=== PATIENT | male | born 1995 | race Caucasian/White ===

== ENCOUNTER 2017-05-05 10:53 | Emergency (ER) | payer OTHER ==
--- NOTE | 2017-05-05 11:34 | ED ---
Marcel Chacon Alfonso, scribed for Coleen Rojas MD on 05/05/17 at 1125 . Laceration/Wound HPI - HPI Summary HPI Summary: This patient is a 21 year old M presenting to [facility] accompanied by father with a chief complaint of left 3rd finger laceration which occurred morning. He reports he crushed the finger when closing a drawer. He has not yet cleaned the laceration. The finger is not actively bleeding. The patient rates the pain 0/ 10 in severity. Symptoms aggravated by nothing. Symptoms alleviated by nothing. Tobacco abuse disorder. Patient is right hand dominant. Patient works as a [employer]. - History of Current Complaint Stated Complaint: LT HAND/FINGER INJURY Hx Obtained From: Patient Mechanism of Injury: Sharp/Blunt Trauma Onset/Duration: Sudden Onset, Lasting Minutes, Still Present Aggravating: Nothing Alleviating: Nothing Timing: Constant Onset Severity: Mild Current Severity: None Pain Intensity: 0 Pain Scale Used: 0-10 Numeric Associated Signs & Symptoms: Negative Related Hx: Dominant Hand (Right) - Allergy/Home Medications Allergies/Adverse Reactions: Allergies Allergy/AdvReac Type Severity Reaction Status Date / Time No Known Allergies Allergy Verified 04/28/16 21:48 PMH/Surg Hx/FS Hx/Imm Hx Opthamlomology History: Denies: Hx Legally Blind EENT History: Denies: Hx Deafness Infectious Disease History: No Infectious Disease History: Denies: Traveled Outside the [place] in Last 30 Days - Family History Known Family History: Positive: Hypertension, Diabetes - Social History Occupation: Employed Full-time - [employer] Alcohol Use: Weekly Substance Use Type: Reports: Marijuana Substance Use Comment - Amount & Last Used: DAILY Smoking Status (MU): Heavy Every Day Tobacco Smoker Amount Used/How Often: PPD Review of Systems Negative: Fever Positive: Other - left 3rd finger laceration All Other Systems Reviewed And Are Negative: Yes Physical Exam Triage Information Reviewed: Yes Vital Signs On Initial Exam: Initial Vitals Temp Pulse Resp BP Pulse Ox 98.6 F 94 20 127/69 100 05/05/17 10:55 05/05/17 10:55 05/05/17 10:55 05/05/17 10:55 05/05/17 10:55 Vital Signs Reviewed: Yes Appearance: Positive: Well-Appearing, No Pain Distress Skin: Positive: Warm, Skin Color Reflects Adequate Perfusion, Dry, Other - Left middle finger incomplete superficial laceration at tip finger. Eyes: Positive: EOMI, PARISH ENT: Positive: Pharynx normal, TMs normal Neck: Positive: Supple, Nontender Respiratory/Lung Sounds: Positive: Clear to Auscultation, Breath Sounds Present. Negative: Rales, Rhonchi, Wheezes Cardiovascular: Positive: RRR, Other - No gallop. Negative: Murmur, Rub Abdomen Description: Positive: Nontender, Soft, Other: - No rebound. Negative: Distended, Guarding Bowel Sounds: Positive: Present Musculoskeletal: Positive: Strength/ROM Intact, Other - No subungual hematoma. No left hand tenderness.. Negative: Edema Left, Edema Right Neurological: Positive: Sensory/Motor Intact, Alert, Oriented to Person Place, Time, CN Intact II-III - 2-12 Psychiatric: Positive: Affect/Mood Appropriate Procedures - Laceration/Wound Repair 1 Location: Other - Left 3rd finger Description: Linear - superficial Irrigated w/ Saline (ccs): 250 Number of Sutures: 0 - Splint applied Diagnostics - Vital Signs Vital Signs Temp Pulse Resp BP Pulse Ox 05/05/17 10:55 98.6 F 94 20 127/69 100 - Laboratory Lab Statement: Any lab studies that have been ordered have been reviewed, and results considered in the medical decision making process. Laceration Repair Course/Dx - Course Course Of Treatment: Pt shut non-dominant middle finger in drawer this am, very superficial laceration that was irrigated with 250 cc ns, tetanus up to date, no pain (pt refused xray), no subungal hematoma, padded splint applied with dressing for pt to use during work hours to avoid hitting the finger - Clinical Impression Provider Diagnoses: Superficial laceration, Blunt injury Discharge - Discharge Plan Condition: Stable Disposition: HOME Patient Education Materials: Finger Laceration (ED) Referrals: [facility] [place] [facility] REFERRAL [Outside] - 3 Days Additional Instructions: RETURN TO THE EMERGENCY DEPARTMENT FOR CHANGING OR WORSENING SYMPTOMS. The documentation as recorded by the Marcel madera Alfonso accurately reflects the service I personally performed and the decisions made by , Coleen Rojas MD.
[2017-05-05 11:42] VITALS: BP 124/66
== END 2017-05-05 11:40 | disposition home or self-care (01) ==
LOC: ED 10:53
DX: S61.213A Laceration without foreign body of left middle finger without damage to nail, initial encounter (principal); W23.0XXA Caught, crushed, jammed, or pinched between moving objects, initial encounter; Y93.9 Activity, unspecified; Y92.9 Unspecified place or not applicable; F17.210 Nicotine dependence, cigarettes, uncomplicated
CPT/HCPCS: 99282